=== PATIENT | male | born 1955 | race Two or more races ===

== ENCOUNTER 2017-01-03 09:15 | Day surgery (SDC) | payer BC ==
[~2017-01-03] VITALS: Ht 170.2 cm; Wt 73.5 kg
[~2017-01-03 09:15] MED LIST: BUPIVAC MPF-EPI 0.5%-1:200000 30 ML VIAL. ONE; LIDOCAINE 2% 100 MG/5 ML SYRINGE. ONE; PROPOFOL 20 ML IV ONE; SUCCINYLCHOLINE 200 MG/10 ML VIAL. ONE; fentaNYL PF VIAL 100 MCG/2 ML VIAL ONE
[2017-01-03] MEDS ORDERED: FLUT16SP NS (09:24)
[2017-01-03] MEDS ORDERED: SULF1TAB23 PO (09:24)
[2017-01-03] MEDS ORDERED: IV RINGERS,LACTATED 1000ML 1,000 ML IV SCH ×3 (10:00→11:12)
[2017-01-03] MEDS ORDERED: BUPIVACAINE MPF 0.5% 30 ML VIAL. IJ ONE (10:02)
[2017-01-03] MEDS ORDERED: DEXAMETHASONE SOD PHOS 20 MG/5 ML VIAL. ONE (10:18)
[2017-01-03] MEDS ORDERED: DESFLURANE 16 TO 30 MINUTES. IH ONE (10:18)
[2017-01-03] MEDS ORDERED: PHENYLEPHRINE in 0.9% NACL PF 1 MG/10 ML DISP.SYRIN. IV ONE (10:18)
[2017-01-03] MEDS ORDERED: ONDANSETRON PF 4 MG/2 ML VIAL. ONE (10:18)
[2017-01-03] MEDS ORDERED: GLYCOPYRROLATE 1 MG/5 ML VIAL. ONE (10:27)
[2017-01-03] MEDS ORDERED: NEOSTIGMINE METHYLSULFATE 5 MG/5 ML SYRINGE. ONE (10:27)
--- NOTE | 2017-01-03 10:37 | PDOC ---
BRIEF OPERATIVE NOTE Date: January 03, 2017 Pre-Op Diagnosis Right gluteal abscess Post-Op Diagnosis Same Procedure Performed I&D Right gluteal abscess Surgeon Amari Anesthesia Type: General Blood Loss 10ml Specimens Obtained Cultures Findings As above Complications None ASHER ZALDIVAR MD January 03, 2017 10:37
--- NOTE | 2017-01-03 10:39 | DISCH ---
DISCHARGE INSTRUCTIONS Condition on Discharge Condition on Discharge: Stable Activity After Discharge Activity Instructions for Disc: Activity as tolerated Diet after Discharge Diet after Discharge: Regular Wound Incision Care Other wound/incision instructi: Daily dressing and packing change M-F in outpatient [facility] Contacting the after DC Call your doctor for: If your condition worsens Follow-Up Follow up with: Dr Zaldivar 1 week ASHER ZALDIVAR MD January 03, 2017 10:39
[2017-01-03] MEDS ORDERED: oxyCODONE/APAP 5/325 1 TAB TABLET PO ONE (11:00)
[2017-01-03] MEDS ORDERED: fentaNYL PF VIAL 100 MCG/2 ML VIAL ONE (11:04)
[2017-01-03] MEDS ORDERED: PROCHLORPERAZINE 10 MG/2 ML VIAL. IV PRN ×2 (11:15)
[2017-01-03] MEDS ORDERED: MORPHINE SULFATE 2 MG/ML DISP.SYRIN. IV PRN ×2 (11:15)
[2017-01-03] MEDS ORDERED: HYDROmorphone 2 MG/ML VIAL IV PRN ×2 (11:15)
[2017-01-03] MEDS: fentaNYL PF VIAL 100 MCG/2 ML VIAL IV PRN ×2 (11:15→11:20)
[2017-01-03] MEDS ORDERED: fentaNYL PF VIAL 100 MCG/2 ML VIAL IV PRN ×3 (11:15)
[2017-01-03] MEDS ORDERED: ONDANSETRON PF 4 MG/2 ML VIAL. IV PRN ×2 (11:15)
[2017-01-03] MEDS ORDERED: LIDOCAINE 1% 1 ML SYRINGE. ID PRN ×2 (11:15)
--- NOTE | 2017-01-03 11:38 | OP ---
DATE OF SURGERY: 01/03/2017 PREOPERATIVE DIAGNOSIS: Right gluteal hematoma versus abscess. POSTOPERATIVE DIAGNOSIS: Right gluteal abscess. PROCEDURE: Incision and drainage of gluteal abscess. SURGEON: Davey Zaldivar M.D. INDICATIONS: The patient is a 61-year-old gentleman, had an injection in his right gluteus area developed ____ hematoma that has been getting larger and more painful. Procedure of open and drainage was explained to the patient in detail. Risks, benefits were also discussed including bleeding, infection. Alternatives of this procedure were also discussed with the patient who seemed to understand and gave verbal and written consent to have the procedure performed. DESCRIPTION OF PROCEDURE: The patient was taken to the operating room and placed in the supine position, general anesthesia was initiated. Once the patient was asleep and intubated, he was then repositioned in the prone positioning. His right buttock was prepped and draped in usual sterile fashion using ChloraPrep. An area over the right gluteus was injected with 0.25% Marcaine with epinephrine. Incision made with 10 blade scalpel. Copious amounts of purulent material were expressed. This was cultured. Suction was used to suction all this material out ____. The wound was then irrigated with copious amounts of normal saline and suctioned dry. The wound was then packed with 1 inch iodoform Nu Gauze. This was dressed with 4 x 4's and Medipore tape. The patient was repositioned in the supine and awakened and extubated in the operating room, taken to recovery in stable condition. All sponge, instrument counts listed as correct. Estimated blood loss 10 mL. DAVEY ZALDIVAR MD DR: ALBINA/chad JOB#: [id number] / [id number]
[2017-01-03] MEDS ORDERED: OXYC-323 PO (11:52)
[2017-01-03 11:55] VITALS: BP 104/60
== END 2017-01-03 12:29 | disposition home or self-care (01) ==
LOC: SURG 09:15
PROVIDERS: ATTEND Surgery
DX: L02.31 Cutaneous abscess of buttock (principal); S30.0XXA Contusion of lower back and pelvis, initial encounter; Z90.49 Acquired absence of other specified parts of digestive tract; Z87.39 Personal history of other diseases of the musculoskeletal system and connective tissue
CPT/HCPCS: 10060; 87205; A4215; J0330; J0690; J1100; J2370; J2405; J2704; J2710; J3010; J3490; 87071; 87075